=== PATIENT | male | born 1955 | race Caucasian/White ===

== ENCOUNTER → 2016-06-07 | Outpatient (CLI) | payer BC, OTHER ==
[~2016-06-07] MED LIST: CODEINE; CONRAY-43 43% 50ML VIAL (Q9960) As Ordered ONE; ISOVUE-300 61% 50ML VIAL (Q9967) As Ordered ONE; KEFL500C OR; MICA80TA OR; OMEP20TA7 OR; PLAV75TA2 OR; ROSU10TA OR; TYLENOL; [UNRECOGNIZED DRUG - OTHER]
--- NOTE | 2016-06-07 09:44 | REP ---
MR ARTHROGRAM RIGHT SHOULDER: TECHNIQUE: Axial T2 fat sat, coronal oblique T1, T2 fat sat, post arthrogram axial T1 fat sat, proton density, coronal oblique T1 fat sat, T2 sat, sagittal oblique T2 fat sat, ABER T1 fat sat. COMPARISON: MRI 04/22/2016 at [facility]. There are mild hypertrophic degenerative changes of the acromioclavicular joint with mild downward sloping and curved shape of the acromion. There are findings of mild tendinopathy-tendinitis of the supraspinatus tendon. No rotator cuff tendon tear is seen. Biceps tendon is within the bicipital groove without tenosynovitis. There is no Hill-Sachs deformity. No abnormal signal is seen in the deltoid muscle. Once again, there is evidence of fraying at the biceps labral complex with a partial tear of the superior labrum. The other portions of the labrum are intact. There is no bone marrow edema or occult fracture. There is a normal amount of joint fluid. There is tiny amount of subacromial fluid. IMPRESSION: Mild hypertrophic degenerative changes acromioclavicular joint with mild downward sloping and a curved shape of the acromion. Supraspinatus tendinopathy/tendonitis without evidence of rotator cuff tear. Fraying of the biceps labral complex with partial tear of the superior labrum. Signed by Brandt Thompson MD 06/07/2016 02:16 P
--- NOTE | 2016-06-08 09:29 | REP ---
Procedure: Right shoulder arthrogram The procedure was performed under the direct supervision of Dr. Thompson. History: Right shoulder pain The benefits and risks including but not limited to pain, infection, bleeding and anaphylaxis were explained to the patient and informed consent was obtained. Technique: The right glenohumeral joint space was localized using fluoroscopic guidance. The skin was prepped and draped in a sterile fashion. 1% lidocaine was used as a local anesthetic. Using fluoroscopic guidance a 22 gauge spinal needle was inserted and advanced into the joint. 0.5 ml of Conray 43 was injected to verify placement. 11 ml of a solution containing 20 ml of sterile saline and 0.15 ml of ProHance was injected into the joint. The needle was removed and the patient was taken to MRI for postprocedural imaging. The the patient tolerated the procedure well and there were no immediate complications. 1 second of of fluoro time was utilized for this procedure. Reviewed by MICHELLE Trevizo 06/07/2016 05:13 PSigned by Brandt Thompson MD 06/08/2016 09:21 A
== END ==
LOC: M RADPRO 06:58
PROVIDERS: ATTEND Physician Assistant Surgical
DX: M65.811 Other synovitis and tenosynovitis, right shoulder (principal); M75.91 Shoulder lesion, unspecified, right shoulder

== ENCOUNTER → 2021-06-25 | Outpatient (REF) | payer OTHER ==
[~2021-06-25] MED LIST changes: -CONRAY-43 43% 50ML VIAL (Q9960) As Ordered ONE; +CRES10TA32 OR; -ISOVUE-300 61% 50ML VIAL (Q9967) As Ordered ONE; -ROSU10TA OR
[2021-06-25 18:28] LABS: FERRITIN 53 NG/ML (26-388); IRON (FE) 33 UG/DL (65-175); PERCENT SATURATION 13.1 % (19.7-50.0); TOTAL IRON BINDING CAPACITY 252 UG/DL (250-450); TOTAL PROTEIN 6.9 GM/DL (6.4-8.2)
[2021-06-29 10:48] LABS: ALBUMIN 3.48 GM/DL (3.29-5.55); ALBUMIN % 50.4 % (55.8-66.1); ALPHA-1-GLOBULIN % 6.2 % (2.9-4.9); ALPHA-1-GLOBULINS 0.43 GM/DL (0.17-0.41); ALPHA-2-GLOBULINS 1.11 GM/DL (0.42-0.99); ALPHA-2-GLOBULINS % 16.1 % (7.1-11.8); BETA-1-GLOBULINS 0.46 GM/DL (0.28-0.60); BETA-1-GLOBULINS % 6.6 % (4.7-7.2); BETA-2-GLOBULINS 0.38 GM/DL (0.19-0.55); BETA-2-GLOBULINS % 5.5 % (3.2-6.5)
[2021-06-29 10:49] LABS: GAMMA GLOBULIN % 15.2 % (11.1-18.8); GAMMA GLOBULINS 1.05 GM/DL (0.65-1.58)
[2021-06-29 10:56] LABS: IMMUNOTYPING SERUM IGG ABNORMAL (NORMAL); IMMUNOTYPING SERUM LAMBDA ABNORMAL (NORMAL)
== END ==
LOC: M LAB REF 16:53
PROVIDERS: ATTEND Internal Medicine Nephrology
DX: N18.32 Chronic kidney disease, stage 3b (principal)

== ENCOUNTER → 2021-09-14 | Outpatient (CLI) | payer OTHER ==
[~2021-09-14] MED LIST changes: +CIAL5TAB PO; +CLOP75TA2; +DOXA1TAB41; +ECOT81TA5 PO; +ENTR1TAB; +GASTROGRAFIN SOLUTION 30ML (Q9963) ONE; +LORA-926; +METO1TAB33; +OMEP40CA4; +ROSU40TA4
== END ==
LOC: M PLAIMG 09:08
PROVIDERS: ATTEND Internal Medicine Hematology & Oncology
DX: D47.2 Monoclonal gammopathy (principal)

== ENCOUNTER → 2023-06-24 | Outpatient (CLI) | payer MEDICARE, MEDICAID ==
[~2023-06-24] MED LIST changes: -GASTROGRAFIN SOLUTION 30ML (Q9963) ONE; +LORA-1042; -LORA-926
[2023-06-24 18:07] LABS: BASO # 0.1 10^3/uL (0.0-0.2); BASO % 0.7 % (0.0-1.0); EOS # 0.2 10^3/uL (0.0-0.5); EOS % 3.5 % (0.0-3.0); HEMATOCRIT 39.5 % (42.0-52.0); HEMOGLOBIN 12.4 g/dl (13.5-17.5); LYMPH % 14.4 % (24.0-44.0); MEAN CORPUSCULAR HEMOGLOBIN 26.6 pg (27.0-33.0); MEAN CORPUSCULAR HGB CONC 31.4 g/dl (32.0-36.5); MEAN CORPUSCULAR VOLUME 84.6 fl (80.0-96.0); MONO # 0.5 10^3/uL (0.0-0.8); PLATELET COUNT, AUTOMATED 207 10^3/uL (150-450); RED BLOOD COUNT 4.67 10^6/uL (4.30-6.10); WHITE BLOOD COUNT 6.8 10^3/uL (4.0-10.0)
[2023-06-24 18:13] LABS: URIC ACID 4.7 MG/DL (3.7-9.2)
[2023-06-24 18:16] LABS: ALBUMIN 3.3 G/DL (3.2-5.2); ALKALINE PHOSPHATASE 121 U/L (46-116); ALT/SGPT < 9 U/L (7.0-40); AST/SGOT 11 U/L (<34); BILIRUBIN,TOTAL 0.3 MG/DL (0.3-1.2); BLOOD UREA NITROGEN 20 MG/DL (9-23); CALCIUM LEVEL 8.6 MG/DL (8.3-10.6); CARBON DIOXIDE LEVEL 25 MMOL/L (20-31); CHLORIDE LEVEL 110 MMOL/L (98-107); CREATININE FOR GFR 1.97 MG/DL (0.70-1.30); GLOMERULAR FILTRATION RATE 36.4 (>49); GLUCOSE, FASTING 91 MG/DL (74-106); POTASSIUM SERUM 4.5 MMOL/L (3.5-5.1); SODIUM LEVEL 140 MMOL/L (136-145); TOTAL PROTEIN 6.8 G/DL (5.7-8.2)
[2023-06-24 18:22] LABS: RHEUMATOID FACTOR QUANT < 3.5 IU/ML (<14)
[2023-06-24 18:27] LABS: ERYTHROCYTE SEDIMENTATION RATE 56 mm/hr (0-20)
== END ==
LOC: M PLALAB 14:45
PROVIDERS: ATTEND Orthopaedic Surgery
DX: M25.561 Pain in right knee (principal)